=== PATIENT | female | born 1985 | race Caucasian/White ===

== ENCOUNTER 2017-03-31 20:47 | Emergency (ER) | payer MEDICAID, OTHER ==
[2017-03-31] MEDS ORDERED: Lidocaine/EPINEPHrine/Tetracaine Soln 1 ML TOP ONE ×2 (21:57→22:02)
[2017-03-31 22:39] LABS: ACETAMINOPHEN 0 ug/mL (10-30)
--- NOTE | 2017-03-31 22:50 | EDM.PDOCBH ---
ED HPI GENERAL MEDICAL PROBLEM - General Chief Complaint: Behavioral/Psych Stated Complaint: [facility] Time Seen by Provider: 03/31/17 21:04 Source of Information: Reports: Patient, RN Notes Reviewed History Limitations: Reports: Other (Patient crying, yelling, swearing) - History of Present Illness INITIAL COMMENTS - FREE TEXT/NARRATIVE: The patient states that she and her fieric moved to [place] about 2 or 3 weeks ago. She states that she has a history of borderline personality disorder and social anxiety, and has been treated with both Celexa and Abilify. About 10 days ago she self-decreased both of these medications by half, then 4 days ago stopped them altogether. She states that she was seen by Juanita Duran NP at the [facility] yesterday, 03/30/2017 due to worsening anxiety and mood swings. She was prescribed Klonopin 1 mg, with instructions to take half a tablet in the morning, another half a tablet at midday, then 1 full tablet at bedtime. She was to follow-up in 2 weeks. She states that she took less than the prescribed dose, but then had a difficult time waking up this morning, feeling groggy. She notes that she had previously been on Klonopin 2 mg total per day, but that was several years ago. She states that when her fianc came home at 13:00 this afternoon, he told her that he did not want to be around her, therefore she grabbed a kitchen knife and slashed her left wrist 4 times. When asked why she did this, she stated that she hoped she would . Her fianc called EMS. The patient acknowledges one prior suicide attempt in 2007, by slitting her wrists with a razor blade in a bathtub. She was found by her sister. She states that she was taken to an ER, but sent home that same night. She was not psychiatrically hospitalized for that attempt. She states that she has been psychiatrically hospitalized only once, at around 12 years old, due to anger issues. The patient states that she was in drug rehabilitation for methamphetamine abuse in March 2016 for 30 days, followed by [facility] for 60 days. She states that she has not used methamphetamine since. The patient states that she ordinarily drinks a couple of alcoholic beverages, 3 times week, but today has had 6 shots. Left Wrist Pain Score (Numeric/FACES): 6 - Related Data Allergies Allergy/AdvReac Type Severity Reaction Status Date / Time Penicillins Allergy Vomiting Verified 03/31/17 21:02 Past Medical History [address] [employer] History: Reports: Musculoskeletal History: Reports: RA (per patient history) Psychiatric History: Reports: Addiction, Anxiety, Depression, Mood Swings, OCD, Suicide Attempt, Other (See Below) (Borderline personality disorder) Endocrine/Metabolic History: Reports: Hyperthyroidism - Infectious Disease History Infectious Disease History: Reports: Hepatitis C - Past Surgical History HEENT Surgical History: Reports: Oral Surgery (2 wisdom teeth extracted) Social & Family History - Tobacco Use Smoking Status *Q: Current Every Day Smoker Years of Tobacco use: 18 Packs/Tins Daily: 2 - Caffeine Use Caffeine Use: Reports: Coffee - Alcohol Use Alcohol Use History: Yes Days Per Week of Alcohol Use: 3 Number of Drinks Per Day: 2 Total Drinks Per Week: 6 Alcohol Use Frequency: Socially - Recreational Drug Use Recreational Drug Use: Yes Drug Use in Last 12 Months: No Recreational Drug Type: Reports: Methamphetamine - Living Situation & Occupation Living situation: Reports: Single, with Significant Other (Fiance) Occupation: Unemployed ED ROS GENERAL - Review of Systems Review Of Systems: See Below Constitutional: Reports: No Symptoms HEENT: Reports: No Symptoms Respiratory: Reports: No Symptoms Cardiovascular: Reports: No Symptoms Endocrine: Reports: No Symptoms GI/Abdominal: Reports: No Symptoms : Reports: No Symptoms Musculoskeletal: Reports: No Symptoms Skin: Reports: No Symptoms Neurological: Reports: No Symptoms Psychiatric: Reports: No Symptoms Hematologic/Lymphatic: Reports: No Symptoms Immunologic: Reports: No Symptoms ED EXAM, BEHAVIORAL HEALTH - Physical Exam Exam: See Below Exam Limited By: No Limitations General Appearance: Alert, WD/WN, Other (Emotionally upset) Eye Exam: Bilateral Eye: Normal Inspection Ears: Normal External Exam, Hearing Grossly Normal Nose: Normal Inspection, No Blood Throat/Mouth: Normal Inspection, Normal Lips, Normal Voice, No Airway Compromise Head: Atraumatic, Normocephalic Neck: Normal Inspection, Full Range of Motion Respiratory/Chest: No Respiratory Distress, Lungs Clear, Normal Breath Sounds, No Accessory Muscle Use Cardiovascular: Normal Peripheral Pulses, Regular Rate, Rhythm, No Gallop, No JVD, No Murmur, No Rub GI/Abdominal: Normal Bowel Sounds, Soft, Non-Tender, No Organomegaly, No Distention, No Abnormal Bruit, No Mass (Female) Exam: Deferred Rectal (Female) Exam: Deferred Back Exam: Normal Inspection, Full Range of Motion, NT Extremities: Normal Range of Motion, No Pedal Edema, Normal Capillary Refill, Other (There are 4 tangential scratches to the distal left forearm, 4 aspect. Within the and the 2 proximal most scratches, there are lacerations. The most distal scratch measures proximally 4 cm, with a 1 cm laceration. The next most proximal scratches approximately 3.5 cm, without a laceration. The next most proximal lesion measures approximately 5 cm, with a 1.5 cm laceration, and the most proximal lesion measures approximately 5.5 cm, with a 2 cm laceration.) Neurological: Alert, No Motor/Sensory Deficits Psychiatric: Tearful, Agitated, Suicidal Thoughts, Other (Hostile) Skin Exam: Warm, Dry, Normal color, No rash ED LACERATION PROCEDURES - Laceration/Wound Repair Left Arm Lac/wound length in cm: 4.5 Appearance: Subcutaneous, Linear, Clean Distal NVT: Neuro & Vascular Intact, No Tendon Injury Anesthetic Type: Topical (LET) Local Anesthesia - Lidocaine (Xylocaine): 1% with EPI Local Anesthesia - Bupivicaine (Marcaine): 0.5% Plain Local Anesthetic Volume: 2cc Skin Prep: Providone-Iodine (Betadine) Exploration/Debridement/Repair: Wound Explored, In a Bloodless Field, Explored to Base, Wound Margins Revised Closed with: Sutures, Dermabond Suture Size: 3-0 # of Sutures: 7 Suture Type: Nylon, Interrupted, Running, Simple Sterile Dressing Applied: Nurse Tetanus Status Addressed: Yes Complications: No EKG INTERPRETATION EKG Date: 03/31/17 Time: 21:51 Rhythm: Other (Sinus tachycardia) Rate (Beats/Min): 112 [place]: Normal P-Wave: Present QRS: Normal ST-T: Normal QT: Normal Comparison: NA - No Prior EKG COURSE, BEHAVIORAL HEALTH COMP - Course Vital Signs: Last Vital Signs Temp 36.3 C 03/31/17 20:53 Pulse 114 H 03/31/17 20:53 Resp 20 03/31/17 20:53 BP 127/88 03/31/17 20:53 Pulse Ox 93 L 03/31/17 20:53 Orders, Labs, Meds: Active Orders 24 hr Category Date Time Status EKG Documentation Completion [RC] STAT Care 03/31/17 21:43 Active Vaccines to be Administered [RC] PER UNIT ROUTINE Care 04/01/17 01:05 Active Laboratory Tests 03/31/17 03/31/17 03/31/17 Range/Units 21:05 21:05 21:57 WBC 6.98 (3.98-10.04) K/mm3 RBC 4.08 (3.98-5.22) M/mm3 Hgb 12.7 (11.2-15.7) gm/L Hct 36.1 (34.1-44.9) % MCV 88.5 (79.4-94.8) fl MCH 31.1 (25.6-32.2) pg MCHC 35.2 (32.2-35.5) g/dl RDW Std Deviation 39.5 (36.4-46.3) fL Plt Count 237 (182-369) K/mm3 MPV 9.6 (9.4-12.3) fl Neutrophils % (Manual) 43 (40-60) % Band Neutrophils % 0 (0-10) % Lymphocytes % (Manual) 54 H (20-40) % Atypical Lymphs % 0 % Monocytes % (Manual) 3 (2-10) % Eosinophils % (Manual) 0 L (0.7-5.8) % Basophils % (Manual) 0 L (0.1-1.2) Platelet Estimate Adequate RBC Morph Comment Normal Sodium (136-145) mEq/L Potassium (3.5-5.1) mEq/L Chloride (98-107) mEq/L Carbon Dioxide (21-32) mEq/L Anion Gap (5-15) BUN (7-18) mg/dL Creatinine (0.55-1.02) mg/dL Est Cr Clr Drug Dosing mL/min Estimated GFR (MDRD) (>60) mL/min BUN/Creatinine Ratio (14-18) Glucose (74-106) mg/dL Calcium (8.5-10.1) mg/dL Total Bilirubin (0.2-1.0) mg/dL AST (15-37) U/L ALT (14-59) U/L Alkaline Phosphatase (46-116) U/L Total Protein (6.4-8.2) g/dl Albumin (3.4-5.0) g/dl Globulin gm/dL Albumin/Globulin Ratio (1-2) TSH 3rd Generation (0.358-3.74) uIU/mL Urine HCG, Qual Negative (NEGATIVE) Salicylates (2.8-20) mg/dL Urine Opiates Screen Negative (NEGATIVE) Ur Buprenorphine Scrn Negative (NEGATIVE) Ur Oxycodone Screen Negative (NEGATIVE) Urine Methadone Screen Negative (NEGATIVE) Ur Propoxyphene Screen Negative (NEGATIVE) Acetaminophen (10-30) ug/mL Ur Barbiturates Screen Negative (NEGATIVE) Ur Tricyclics Screen Negative (NEGATIVE) Ur Phencyclidine Scrn Negative (NEGATIVE) Ur Amphetamine Screen Negative (NEGATIVE) U Methamphetamines Scrn Negative (NEGATIVE) U Benzodiazepines Scrn Negative (NEGATIVE) U Cocaine Metab Screen Negative (NEGATIVE) U Marijuana (THC) Screen Negative (NEGATIVE) Ethyl Alcohol (0.00) gm% 03/31/17 03/31/17 Range/Units 21:57 21:57 WBC (3.98-10.04) K/mm3 RBC (3.98-5.22) M/mm3 Hgb (11.2-15.7) gm/L Hct (34.1-44.9) % MCV (79.4-94.8) fl MCH (25.6-32.2) pg MCHC (32.2-35.5) g/dl RDW Std Deviation (36.4-46.3) fL Plt Count (182-369) K/mm3 MPV (9.4-12.3) fl Neutrophils % (Manual) (40-60) % Band Neutrophils % (0-10) % Lymphocytes % (Manual) (20-40) % Atypical Lymphs % % Monocytes % (Manual) (2-10) % Eosinophils % (Manual) (0.7-5.8) % Basophils % (Manual) (0.1-1.2) Platelet Estimate RBC Morph Comment Sodium 143 (136-145) mEq/L Potassium 3.9 (3.5-5.1) mEq/L Chloride 108 H (98-107) mEq/L Carbon Dioxide 23 (21-32) mEq/L Anion Gap 15.9 H (5-15) BUN 9 (7-18) mg/dL Creatinine 0.7 (0.55-1.02) mg/dL Est Cr Clr Drug Dosing 101.48 mL/min Estimated GFR (MDRD) > 60 (>60) mL/min BUN/Creatinine Ratio 12.9 L (14-18) Glucose 92 (74-106) mg/dL Calcium 8.8 (8.5-10.1) mg/dL Total Bilirubin 0.4 (0.2-1.0) mg/dL AST 40 H (15-37) U/L ALT 84 H (14-59) U/L Alkaline Phosphatase 51 (46-116) U/L Total Protein 6.9 (6.4-8.2) g/dl Albumin 3.8 (3.4-5.0) g/dl Globulin 3.1 gm/dL Albumin/Globulin Ratio 1.2 (1-2) TSH 3rd Generation 0.867 (0.358-3.74) uIU/mL Urine HCG, Qual (NEGATIVE) Salicylates 3.3 (2.8-20) mg/dL Urine Opiates Screen (NEGATIVE) Ur Buprenorphine Scrn (NEGATIVE) Ur Oxycodone Screen (NEGATIVE) Urine Methadone Screen (NEGATIVE) Ur Propoxyphene Screen (NEGATIVE) Acetaminophen 0 L (10-30) ug/mL Ur Barbiturates Screen (NEGATIVE) Ur Tricyclics Screen (NEGATIVE) Ur Phencyclidine Scrn (NEGATIVE) Ur Amphetamine Screen (NEGATIVE) U Methamphetamines Scrn (NEGATIVE) U Benzodiazepines Scrn (NEGATIVE) U Cocaine Metab Screen (NEGATIVE) U Marijuana (THC) Screen (NEGATIVE) Ethyl Alcohol 0.07 (0.00) gm% Medications Discontinued Medications Generic Name Dose Route Start Last Admin Trade Name Freq PRN Reason Stop Dose Admin Bupivacaine HCl 10 ml 03/31/17 23:44 04/01/17 01:10 Sensorcaine-Mpf 0.5% INJECT 03/31/17 23:45 10 ml ONETIME ONE Administration Diphtheria/Tetanus/Acell Pertussis 0.5 ml 04/01/17 01:04 04/01/17 08:15 Adacel IM 04/01/17 01:05 0.5 ml .ONCE ONE Administration Lidocaine/Epinephrine 20 ml 03/31/17 23:43 04/01/17 01:10 Xylocaine 1% With Epinephrine 1:100,000 INJECT 03/31/17 23:44 20 ml ONETIME ONE Administration Lidocaine/Tetracaine 1 ml 03/31/17 21:57 03/31/17 22:05 Let Soln TOP 03/31/17 21:58 1 ml ONETIME ONE Administration Lidocaine/Tetracaine 1 ml 03/31/17 22:02 03/31/17 22:09 Let Soln TOP 03/31/17 22:03 1 ml ONETIME ONE Administration Lidocaine/Tetracaine 2 ml 04/01/17 00:01 04/01/17 00:05 Let Soln TOP 04/01/17 00:02 2 ml ONETIME STA Administration Medical Clearance: 04/01/17 01:05 Following LET anesthesia plus additional 50:50 admixture of 1% lidocaine with epinephrine and bupivacaine 0.5% without epinephrine, the 2 most proximal lacerations were sutured with 3-0 Ethilon. The most proximal laceration, measuring 2 cm, received 5 running sutures, while the second most proximal laceration, measuring 1.5 cm, received 2 simple interrupted sutures. The most distal laceration, measuring 1 cm, was closed with Dermabond. The patient tolerated the procedure well. As the patient does not recall when her last tetanus vaccination was, a tetanus vaccination has been ordered, however, the patient requested that she receive it in the morning. 04/01/17 01:[address] Cox, Psychiatrist at [facility], at 01:28. He accepts the patient for involuntary psychiatric admission. He states that he does not need screening by [facility]. He is aware that the patient may not arrive to their facility until as late as 11:30 CDT in the morning. 04/01/17 07:00 The patient has been sleeping quietly overnight. We are expecting [facility] to arrive here for transport between 08:00 and 09:00 this morning. Departure - Departure Time of Disposition: 09:30 Disposition: DC/Tfer to Psych Hosp/Unit 65 Condition: Fair Clinical Impression: Suicide attempt, Laceration of left forearm without complication - Discharge Information - My Orders Last 24 Hours: My Active Orders 03/31/17 21:43 EKG Documentation Completion [RC] STAT 04/01/17 01:05 Vaccines to be Administered [RC] PER UNIT ROUTINE - Assessment/Plan Last 24 Hours: My Active Orders 03/31/17 21:43 EKG Documentation Completion [RC] STAT 10/20/17 01:05 Vaccines to be Administered [RC] PER UNIT ROUTINE
[2017-03-31] MEDS ORDERED: Lidocaine 1% with EPINEPHrine 1:100,000 20 ML MDV INJECT ONE (23:43)
[2017-03-31] MEDS ORDERED: Bupivacaine 0.5% 10 ML SDV INJECT ONE (23:44)
[2017-04-01] MEDS ORDERED: Lidocaine/EPINEPHrine/Tetracaine Soln 1 ML TOP STA (00:01)
[2017-04-01] MEDS ORDERED: Diphtheria,Pertussis(Acell),Tetanus Vaccine 0.5 ML SDV IM ONE (01:04)
== END 2017-04-01 09:28 ==
LOC: JD.ED 20:47
DX: S51.812A Laceration without foreign body of left forearm, initial encounter (principal); Z88.0 Allergy status to penicillin; Z23 Encounter for immunization; F17.210 Nicotine dependence, cigarettes, uncomplicated; X78.1XXA Intentional self-harm by knife, initial encounter
CPT/HCPCS: 12002; 36415; 80053; 80306; 81025; 84443; 85025; 90471; 90715; 93005; 99285; A9270; G0480; 93010; 99284

== ENCOUNTER 2018-11-22 21:35 | Emergency (ER) | payer MEDICAID | END 2018-11-22 22:58 | disposition home or self-care (01) | LOC: JD.ED 21:35 | DX: Z53.21 Procedure and treatment not carried out due to patient leaving prior to being seen by health care provider (principal) ==

== ENCOUNTER 2018-12-02 16:38 | Emergency (ER) | payer MEDICAID ==
--- NOTE | 2018-12-02 17:02 | EDM.PDOCBH ---
ED HPI GENERAL MEDICAL PROBLEM - General Chief Complaint: Behavioral/Psych Stated Complaint: PSYCH EVAL Time Seen by Provider: 12/02/18 16:58 Source of Information: Reports: Patient, RN Notes Reviewed History Limitations: Reports: No Limitations - History of Present Illness INITIAL COMMENTS - FREE TEXT/NARRATIVE: Patient is a 33-year-old female who presents to the ED for a mental health evaluation. The patient notes that she has a history of bipolar, and that she takes Celexa, Abilify, and lamotrigine for mood stabilization, she has been trying to wean herself off of her when necessary clonidine. The patient notes that her moods today and recently feel very unstable and or teetering between anger and anxiety. She notes a history of being quite violent when she is angry. However she is not having any thoughts of harming herself or others today. She also has denied hearing or seeing anything that is not there. She states that she starting anger management group and a borderline personality croup in December. She told the triage nurse that she is currently homeless, and was trying to get herself into a snf house named [facility], but due to the fact she was on Celexa, they denied her entry. The patient is currently being seen on an outpatient basis at [facility] with Dr. Ordoñez. The patient states that she has a therapy appointment on Tuesday. The patient notes that she uses a vapo 10, and has recently started smoking, denies alcohol use, and states that she did use meth with the last time being 3 weeks ago. - Related Data Allergies Allergy/AdvReac Type Severity Reaction Status Date / Time Penicillins Allergy Vomiting Verified 01/20/18 10:22 Home Meds: Home Meds ARIPiprazole [Abilify] 2 mg PO DAILY 01/20/18 [History] Citalopram Hydrobromide [Celexa] 40 mg PO DAILY 01/20/18 [History] Pantoprazole Sodium [Protonix] 40 mg PO DAILY 12/02/18 [History] clonazePAM [Clonazepam] 1 mg PO BID PRN #14 tab.rapdis 12/02/18 [Rx] lamoTRIgine [Lamotrigine] 100 mg PO BID 12/02/18 [History] Past Medical History Respiratory History: Reports: Other (See Below) Other Respiratory History: states has seasonal asthma. Gastrointestinal History: Reports: Irritable Bowel Syndrome Other Gastrointestinal History: self-Dx'd. 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 - Infectious Disease History Infectious Disease History: Reports: Chicken Pox, Hepatitis C - Past Surgical History HEENT Surgical History: Reports: Oral Surgery (2 wisdom teeth extracted) Female Surgical History: Reports: Other (See Below) (cervical bx) Social & Family History - Caffeine Use Caffeine Use: Reports: Coffee, Soda - Living Situation & Occupation Living situation: Reports: Single, Other (Roommate) Occupation: Unemployed ED ROS GENERAL - Review of Systems Review Of Systems: See Below Constitutional: Reports: No Symptoms HEENT: Reports: No Symptoms Respiratory: Reports: No Symptoms Cardiovascular: Reports: No Symptoms Endocrine: Reports: No Symptoms GI/Abdominal: Reports: No Symptoms : Reports: No Symptoms Musculoskeletal: Reports: No Symptoms Skin: Reports: No Symptoms Neurological: Reports: No Symptoms Psychiatric: Reports: Agitation, Anxiety, Mood Lability (as stated per patient, she is appropriate during her ER visit). Denies: Hallucinations, Homicidal Ideation, Suicidal Ideation Hematologic/Lymphatic: Reports: No Symptoms Immunologic: Reports: No Symptoms ED EXAM, BEHAVIORAL HEALTH - Physical Exam Exam: See Below Exam Limited By: No Limitations General Appearance: Alert, WD/WN, No Apparent Distress, Anxious Respiratory/Chest: No Respiratory Distress, Lungs Clear, Normal Breath Sounds, No Accessory Muscle Use, Chest Non-Tender Cardiovascular: Normal Peripheral Pulses, Regular Rate, Rhythm, No Murmur Extremities: Normal Inspection, Normal Capillary Refill Neurological: Alert, Normal Mood/Affect, Normal Reflexes, Oriented x 3 Psychiatric: Alert, Normal Affect, Normal Mood, Oriented, Restless, Pressured Speech (pt does talk quite fast but ideas are fluent, and she seems to want to fill silence.). No: Poor Eye Contact, Uncooperative, Withdrawn, Homicidal Thoughts, Suicidal Plan, Suicidal Thoughts, Auditory Hallucinations, Visual Hallucinations, Grandiose Thoughts, Paranoid Thoughts, Threatening Behavior Skin Exam: Warm, Dry, Intact, Normal color, No rash COURSE, BEHAVIORAL HEALTH COMP - Course Vital Signs: Last Vital Signs Temp 97.4 F 12/02/18 16:46 Pulse 88 12/02/18 16:46 Resp 20 12/02/18 16:46 BP 103/71 12/02/18 16:46 Pulse Ox 97 12/02/18 16:46 Orders, Labs, Meds: Medications Discontinued Medications Generic Name Dose Route Start Last Admin Trade Name Freq PRN Reason Stop Dose Admin Clonazepam 1 mg 12/02/18 17:20 12/02/18 17:41 Klonopin PO 12/02/18 17:21 1 mg ONETIME ONE Administration Discharge vs Psych Eval/Treatment:: 12/02/18 17:35 Patient presents to the ED for a mental health evaluation. It appears that the patient is not thriving well without taking her Klonopin. I did order a 1 mg dose to be given in the ED today. I was in contact with [facility] services in attempts to try to figure out a discharge plan for this patient, I spoke with Gabo, who is communications marketing intern, and she states that they do not have any female beds open at the [facility] at this time. She recommended that we have the patient get a hold of the distribution warehouse manager at [facility] to see if they can provide us with a medication list so that we can verify if Celexa is on that list. However I do not believe that the patient is lying to us about them telling her she cannot be there while taking Celexa. The patient does need to take her medications to help with mood stabilization. It is also fairly obvious that the patient needs to continue to take her Klonopin as needed. 12/02/18 19:12 Pt's GAMBLING BOX PERSON was checked and demonstrates that she got a refill of her clonazepam on 11/25 for 60 tablets, when confronted with this information. The patient states that she flushed all of these medications that she did not want to take them any longer. The patient believes she has a friend she can stay with raheel. I will provide her with 1 week's worth of clonazepam at this time. Departure - Departure Time of Disposition: 19:36 Disposition: Home, Self-Care 01 Condition: Fair Clinical Impression: Anxiety - Discharge Information *PRESCRIPTION DRUG MONITORING PROGRAM REVIEWED*: Yes *COPY OF PRESCRIPTION DRUG MONITORING REPORT IN PATIENT TRUNG: No Prescriptions: clonazePAM [Clonazepam] 1 mg PO BID PRN #14 tab.rapdis PRN Reason: Anxiety Instructions: Living With Anxiety Referrals: Aisha Sanchez PA-C [Primary Care Provider] - Forms: ED Department Discharge Additional Instructions: [facility] your [facility] anxiety. You were given 1 mg of clonazepam, and this seemed to help your symptoms of anxiety. You have been provided with 1 week's worth of clonazepam, please follow up with your provider at [facility] for continuation of this medication. This medication was electronically prescribed to the [place] [facility] located in the [employer] [facility]. Please return to the ER if your symptoms should change or worsen.
[2018-12-02] MEDS ORDERED: ClonazePAM 1 MG Tab PO ONE (17:20)
== END 2018-12-02 20:21 | disposition home or self-care (01) ==
LOC: JD.ED 16:38
DX: F41.9 Anxiety disorder, unspecified (principal); M06.9 Rheumatoid arthritis, unspecified; F31.9 Bipolar disorder, unspecified; Z79.899 Other long term (current) drug therapy; Z98.890 Other specified postprocedural states; Z88.0 Allergy status to penicillin
CPT/HCPCS: 99283; A9270

== ENCOUNTER 2019-04-01 16:20 | Emergency (ER) | payer SELFPAY ==
[2019-04-01] MEDS ORDERED: Lidocaine 1% 10 ML MDV INJECT ONE (16:37)
[2019-04-01] MEDS ORDERED: Lidocaine 1% 50 ML MDV ONE (16:38)
[2019-04-01] MEDS ORDERED: ClonazePAM 0.5 MG Tab PO ONE (16:42)
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
--- NOTE | 2019-04-01 18:13 | CR ---
Left foot: 2 views of the left foot were obtained. Comparison: No prior foot exam. Artifact is seen from portable technique. Slight bunion deformity is noted. Soft tissue swelling is noted laterally. No radiopaque foreign object is appreciated. No discrete bony abnormality is identified. Impression: 1. Slightly limited study. 2. Other findings as noted above. 3. No acute bony abnormality or radiopaque foreign object is seen. Diagnostic code #2
== END 2019-04-01 17:30 | disposition home or self-care (01) ==
LOC: JD.ED 16:20
DX: S91.312A Laceration without foreign body, left foot, initial encounter (principal); S90.415A Abrasion, left lesser toe(s), initial encounter; S60.417A Abrasion of left little finger, initial encounter; S60.512A Abrasion of left hand, initial encounter; S60.511A Abrasion of right hand, initial encounter; F32.9 Major depressive disorder, single episode, unspecified; Z79.899 Other long term (current) drug therapy; Z88.0 Allergy status to penicillin; V48.6XXA Car passenger injured in noncollision transport accident in traffic accident, initial encounter; Y93.39 Activity, other involving climbing, rappelling and jumping off; Y92.410 Unspecified street and highway as the place of occurrence of the external cause
CPT/HCPCS: 12001; 73620; 99282; A9270; J2001; 99283

== ENCOUNTER 2019-09-01 14:00 | Emergency (ER) | payer OTHER ==
--- NOTE | 2019-09-01 15:06 | EDM.PDOC ---
ED HPI GENERAL MEDICAL PROBLEM - General Chief Complaint: Drug or Alcohol Abuse Stated Complaint: RELAPSED NEEDS HELP TO GET TO CRISIS BED Time Seen by Provider: 09/01/19 14:22 Source of Information: Reports: Patient, RN Notes Reviewed History Limitations: Reports: No Limitations - History of Present Illness INITIAL COMMENTS - FREE TEXT/NARRATIVE: Patient is a 34-year-old female who presents to the ED for the evaluation for help to try to get to the crisis bed at [facility]. Patient states she has been at [employer], and was out yesterday and had some alcohol and 2 small shots of meth. She notes that she blew a 0.157 at the last check last night at 6 PM. She was not admitted back into [email or web address] at this time due to being intoxicated. The patient states that she took injections of methamphetamine last night. She states she has not used this in quite some time. The [facility], and was told to show up there Tuesday for intake and to talk with her counselor, but the patient states she could not wait until then so comes here for possible placement into the crisis bed sooner. Patient states that she is got some cold-like symptoms, nothing that is bothersome, she has not had any fevers, shortness of breath, or otherwise. Patient's complaining that she just has nowhere else to go at this time. She is not complaining of any other symptoms whatsoever. - Related Data Allergies Allergy/AdvReac Type Severity Reaction Status Date / Time Penicillins Allergy Vomiting Verified 09/01/19 14:26 Home Meds: Home Meds ARIPiprazole [Abilify] 2 mg PO DAILY 01/20/18 [History] Citalopram Hydrobromide [Celexa] 40 mg PO DAILY 01/20/18 [History] Pantoprazole Sodium [Protonix] 40 mg PO DAILY 12/02/18 [History] clonazePAM [Clonazepam] 1 mg PO BID PRN #14 tab.rapdis 12/02/18 [Rx] lamoTRIgine [Lamotrigine] 100 mg PO BID 12/02/18 [History] Past Medical History Respiratory History: Reports: Other (See Below) Other Respiratory History: states has seasonal asthma. Gastrointestinal History: Reports: Irritable Bowel Syndrome Other Gastrointestinal History: self-Dx'd. 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 - Infectious Disease History Infectious Disease History: Reports: Chicken Pox, Hepatitis C - Past Surgical History HEENT Surgical History: Reports: Oral Surgery Female Surgical History: Reports: Other (See Below) Social & Family History - Family History Family Medical History: Noncontributory - Tobacco Use Smoking Status *Q: Never Smoker - Caffeine Use Caffeine Use: Reports: Coffee, Soda - Recreational Drug Use Recreational Drug Use: Yes Recreational Drug Type: Reports: Methamphetamine - Living Situation & Occupation Living situation: Reports: Single, Other (Roommate) Occupation: Unemployed ED ROS GENERAL - Review of Systems Review Of Systems: Comprehensive ROS is negative, except as noted in HPI. ED EXAM, GENERAL - Physical Exam Exam: See Below Exam Limited By: No Limitations General Appearance: Alert, WD/WN, No Apparent Distress Eye Exam: Bilateral Eye: EOMI, Normal Inspection, PERRL Ears: Normal External Exam Nose: Normal Inspection Throat/Mouth: Normal Inspection, Normal Lips, Normal Teeth, Normal Gums, Normal Oropharynx, Normal Voice, No Airway Compromise Head: Atraumatic, Normocephalic Neck: Normal Inspection Respiratory/Chest: No Respiratory Distress, Lungs Clear, Normal Breath Sounds, No Accessory Muscle Use, Chest Non-Tender Cardiovascular: Normal Peripheral Pulses, Regular Rate, Rhythm, No Murmur Peripheral Pulses: 3+: Radial (L), Radial (R) GI/Abdominal: Normal Bowel Sounds, Soft, Non-Tender, No Distention, No Mass Extremities: Normal Inspection, Normal Capillary Refill Neurological: Alert, Oriented, Normal Cognition, No Motor/Sensory Deficits Psychiatric: Normal Mood, Anxious (pt states that she hasn't had much for sleep last night) Skin Exam: Warm, Dry, Intact, Normal Color, No Rash Course - Vital Signs Last Recorded V/S: Last Vital Signs Temp 97.8 F 09/01/19 14:23 Pulse 125 H 09/01/19 14:23 Resp 16 09/01/19 14:23 BP 149/91 H 09/01/19 14:23 Pulse Ox 97 09/01/19 14:23 - Re-Assessments/Exams Free Text/Narrative Re-Assessment/Exam: 09/01/19 15:05 Patient presents to the ED for the possibility of being admitted into the crisis bed at [facility]. I was in contact with the on-call center recruiter there, and they state that they would not take her for placement at this time, as she is well- known to them, and they did tell her that she can come there Tuesday for evaluation and further management. I did have them call her again while being in the ER to explain this to her and tell her that were not a workaround to get into the [facility] if she is not having an actual crisis. There are no other emergency symptoms or complaints that I can further evaluate today. Patient states that she last drank alcohol last night, took the meth last night, and she is walking appropriately, talking appropriately and is not deemed a harm to herself at this time. Patient will likely be discharged home with general recommendations and have her follow-up with [facility] on Tuesday as previously told. Departure - Departure Time of Disposition: 15:06 Disposition: Home, Self-Care 01 Condition: Fair Clinical Impression: Methamphetamine abuse, Alcohol abuse - Discharge Information *PRESCRIPTION DRUG MONITORING PROGRAM REVIEWED*: No *COPY OF PRESCRIPTION DRUG MONITORING REPORT IN PATIENT TRUNG: No Instructions: Stimulant Use Disorder-Methamphetamines, Alcohol Use Disorder Referrals: Aisha Sanchez PA-C [Primary Care Provider] - Additional Instructions: You were evaluated in the ER today regarding the possible placement into the [facility] at this time. They were called, on your behalf, and they state that they would not accept you into the crisis bed at this time. Your evaluation in the ER elicited no emergency syndromes that need further treatment or evaluation at this time. You are not deemed a harm to yourself, you are able to walk and talk appropriately. You will be discharged from this ER, please try to refrain from alcohol use and methamphetamine use, until Tuesday morning when you can go talk to the staff that [facility] for further evaluation and management. Sepsis Event Note - Evaluation Sepsis Screening Result: No Definite Risk - Focused Exam Vital Signs: Vital Signs Temp Pulse Resp BP Pulse Ox 09/01/19 14:23 97.8 F 125 H 16 149/91 H 97 Date Exam was Performed: 09/01/19 Time Exam was Performed: 15:01
== END 2019-09-01 15:26 | disposition home or self-care (01) ==
LOC: JD.ED 14:00
DX: F15.10 Other stimulant abuse, uncomplicated (principal); F10.10 Alcohol abuse, uncomplicated; Z88.0 Allergy status to penicillin; Z79.899 Other long term (current) drug therapy
CPT/HCPCS: 99282; 99283

== ENCOUNTER 2020-02-23 17:22 | Emergency (ER) | payer OTHER ==
--- NOTE | 2020-02-23 17:41 | EDM.PDOCBH ---
ED HPI GENERAL MEDICAL PROBLEM - General Chief Complaint: Behavioral/Psych Stated Complaint: ANXIETY Time Seen by Provider: 02/23/20 17:31 Source of Information: Reports: Patient, RN Notes Reviewed - History of Present Illness INITIAL COMMENTS - FREE TEXT/NARRATIVE: 34 yr old comes in with panic attacks. She had been on Klonopin for a long time. Her Klonopin was stopped when she was admitted into treatment about 2 1/2 months ago. She states that is not working, having severe anxiety. Has been taking visceral, states that is not working. States the weekend is more difficult when she is not getting therapy. - Related Data Allergies Allergy/AdvReac Type Severity Reaction Status Date / Time Penicillins Allergy Vomiting Verified 02/23/20 17:31 Home Meds: Home Meds Pantoprazole Sodium [Protonix] 40 mg PO DAILY 12/02/18 [History] lamoTRIgine [Lamotrigine] 100 mg PO BID 12/02/18 [History] Mirtazapine [Remeron] 15 mg PO DAILY 02/23/20 [History] Varenicline Tartrate [Chantix] 1 tab PO DAILY 02/23/20 [History] clonazePAM [Clonazepam] 0.25 mg PO BID #4 tab.rapdis 02/23/20 [Rx] Past Medical History Respiratory History: Reports: Other (See Below) Other Respiratory History: states has seasonal asthma. Gastrointestinal History: Reports: Irritable Bowel Syndrome Other Gastrointestinal History: self-Dx'd. 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 - Infectious Disease History Infectious Disease History: Reports: Hepatitis C - Past Surgical History HEENT Surgical History: Reports: Oral Surgery Female Surgical History: Reports: Other (See Below) Social & Family History - Family History Family Medical History: Noncontributory - Tobacco Use Smoking Status *Q: Former Smoker Used Tobacco, but Quit: Yes Month/Year Tobacco Last Used: 2 weeks ago - Caffeine Use Caffeine Use: Reports: None - Recreational Drug Use Recreational Drug Use: Yes Drug Use in Last 12 Months: No Recreational Drug Type: Reports: Methamphetamine - Living Situation & Occupation Living situation: Reports: Single, Other (Roommate) Occupation: Unemployed ED ROS GENERAL - Review of Systems Review Of Systems: See Below Constitutional: Reports: No Symptoms HEENT: Reports: No Symptoms Respiratory: Denies: Shortness of Breath Cardiovascular: Denies: Chest Pain GI/Abdominal: Denies: Abdominal Pain, Vomiting Musculoskeletal: Reports: No Symptoms Skin: Reports: No Symptoms Neurological: Reports: No Symptoms Psychiatric: Reports: Anxiety ED EXAM, BEHAVIORAL HEALTH - Physical Exam Exam: See Below General Appearance: Alert, Anxious Head: Atraumatic Neck: Supple Respiratory/Chest: No Respiratory Distress Extremities: Normal Inspection, Normal Range of Motion Neurological: Alert, No Motor/Sensory Deficits Psychiatric: Alert, Tearful Skin Exam: Warm, Dry, Normal color COURSE, BEHAVIORAL HEALTH COMP - Course Vital Signs: Last Vital Signs Temp 98.5 F 02/23/20 17:29 Pulse 107 H 02/23/20 17:29 Resp 18 02/23/20 17:29 BP 121/83 02/23/20 17:29 Pulse Ox 96 02/23/20 17:29 Departure - Departure Time of Disposition: 17:56 Disposition: Home, Self-Care 01 Condition: Fair Clinical Impression: Anxiety, Panic attacks - Discharge Information Prescriptions: clonazePAM [Clonazepam] 0.25 mg PO BID #4 tab.rapdis Instructions: Panic Attack, Living With Anxiety Referrals: Aisha Sanchez PA-C [Primary Care Provider] - Forms: ED Department Discharge Additional Instructions: clonazepam 0.25 mg twice daily through the weekend. Pres[facility]. Call or see Dr Ordoñez Tuesday. Sepsis Event Note (ED) - Evaluation Sepsis Screening Result: No Definite Risk - Focused Exam Vital Signs: Vital Signs Temp Pulse Resp BP Pulse Ox 02/23/20 17:29 98.5 F 107 H 18 121/83 96
== END 2020-02-23 18:10 | disposition home or self-care (01) ==
LOC: JD.ED 17:22
DX: F41.0 Panic disorder [episodic paroxysmal anxiety] (principal); F31.9 Bipolar disorder, unspecified; Z88.0 Allergy status to penicillin; Z79.899 Other long term (current) drug therapy; Z87.891 Personal history of nicotine dependence
CPT/HCPCS: 99283

== ENCOUNTER 2020-04-07 14:39 | Emergency (ER) | payer MEDICAID ==
--- NOTE | 2020-04-07 15:14 | EDM.PDOC ---
ED HPI GENERAL MEDICAL PROBLEM - General Chief Complaint: ENT Problem Stated Complaint: DENTAL COMPLAINT/SOB Time Seen by Provider: 04/07/20 14:46 Source of Information: Reports: Patient, RN Notes Reviewed History Limitations: Reports: No Limitations - History of Present Illness INITIAL COMMENTS - FREE TEXT/NARRATIVE: Patient is a 34-year-old female who presents to the ED for the evaluation of a few different complaints. She states she has been having issues with a broken tooth on the right lower side of her jaw for the past 3 days, she states that this happened while she was brushing her teeth. She notes that she has been swallowing purulent material, and has a little bit of sore throat and fatigue due to this. She is also questioning whether or not she has a UTI, she states when she goes to the bathroom, which seems to be more frequent, she is only peeing a little bit at a time and notes a cloudiness to her urine. She is not had a fever or chills, her temperature is 97.2 F, her pulse rate is 127, respiratory rate of 28 breaths/min, O2 sats 96% on room air, blood pressure is 98/74. The patient herself cannot sit still, but is acting appropriate and answering questions appropriately. Patient states that she used to use methamphetamines, and her last use was in December of 2019. Throat Pain Score (Numeric/FACES): 10 - Related Data Allergies Allergy/AdvReac Type Severity Reaction Status Date / Time Penicillins Allergy Vomiting Verified 04/07/20 14:45 Home Meds: Home Meds Pantoprazole Sodium [Protonix] 40 mg PO DAILY 12/02/18 [History] lamoTRIgine [Lamotrigine] 100 mg PO BID 12/02/18 [History] Mirtazapine [Remeron] 15 mg PO DAILY 02/23/20 [History] Varenicline Tartrate [Chantix] 1 tab PO DAILY 02/23/20 [History] Cefdinir [Omnicef] 300 mg PO BID 10 Days #20 cap 04/07/20 [Rx] FLUoxetine [PROzac] 60 mg PO DAILY 04/07/20 [History] hydrALAZINE [Apresoline] 25 mg PO ASDIRECTED 04/07/20 [History] Past Medical History Respiratory History: Reports: Other (See Below) Other Respiratory History: states has seasonal asthma. Gastrointestinal History: Reports: Irritable Bowel Syndrome Other Gastrointestinal History: self-Dx'd. 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 - Infectious Disease History Infectious Disease History: Reports: Hepatitis C - Past Surgical History HEENT Surgical History: Reports: Oral Surgery Female Surgical History: Reports: Other (See Below) Social & Family History - Family History Family Medical History: Noncontributory - Caffeine Use Caffeine Use: Reports: None - Living Situation & Occupation Living situation: Reports: Single, Other (Roommate) Occupation: Unemployed ED ROS ENT - Review of Systems Review Of Systems: Comprehensive ROS is negative, except as noted in HPI. ED EXAM, ENT - Physical Exam Exam: See Below Exam Limited By: No Limitations General Appearance: Alert, WD/WN, No Apparent Distress, Anxious (pt seems very anxious and has a hard time sitting still while in the ER.) Mouth/Throat: Normal Inspection, Normal Gums, Normal Lips, Normal Oropharynx, Dental Pain (to right lower jaw. the patient's generalized dentition is in very poor repair.) Respiratory/Chest: No Respiratory Distress, Lungs Clear, Normal Breath Sounds, No Accessory Muscle Use, Chest Non-Tender Cardiovascular: Normal Peripheral Pulses, Regular Rate, Rhythm, No Murmur GI/Abdominal: Normal Bowel Sounds, Soft, Non-Tender, No Organomegaly, No Abnormal Bruit Extremities: Normal Inspection, Normal Capillary Refill Neurological: Alert, Oriented, Normal Cognition, No Motor/Sensory Deficits Psychiatric: Anxious Skin: Warm, Dry, Intact, Normal Color, No Rash Course - Vital Signs Last Recorded V/S: Last Vital Signs Temp 97.2 F 04/07/20 14:53 Pulse 127 H 04/07/20 14:53 Resp 28 H 04/07/20 14:53 BP 98/74 04/07/20 14:53 Pulse Ox 96 04/07/20 14:53 - Orders/Labs/Meds Labs: Laboratory Tests 04/07/20 Range/Units 15:25 Urine Color Yellow (Yellow) Urine Appearance Clear (Clear) Urine pH 6.0 (5.0-8.0) Ur Specific Brady > or = 1.030 (1.005-1.030) Urine Protein 1+ H (Negative) Urine Glucose (UA) Negative (Negative) Urine Ketones 3+ H (Negative) Urine Occult Blood Trace-intact H (Negative) Urine Nitrite Negative (Negative) Urine Bilirubin Negative (Negative) Urine Urobilinogen 0.2 (0.2-1.0) Ur Leukocyte Esterase Negative (Negative) Urine RBC 5-10 H (0-5) /hpf Urine WBC 0-5 (0-5) /hpf Ur Squamous Epith Cells 10-20 H (0-5) /hpf Urine Bacteria Rare (FEW) /hpf Urine Mucus Not seen (FEW) /hpf - Re-Assessments/Exams Free Text/Narrative Re-Assessment/Exam: 04/07/20 15:12 Patient presents to the ED for the evaluation of her multiple complaints. We will get a urinalysis to evaluate for UTI in nature. Patient will be placed on some antibiotics for her dental issue as well. Antibiotic choice is pending until we get the urinalysis. Although the patient states that she has not used meth since December 2019, her physical exam suggests otherwise, nonetheless; the patient is not having acute psychosis or other issues with this. 04/07/20 16:18 Patient's urinalysis is inconsistent with acute UTI at this time. She does have some blood cells in her urine, but again no obvious infection. Patient be discharged home with general recommendations and some antibiotics for her tooth issue. Departure - Departure Time of Disposition: 16:18 Disposition: Home, Self-Care 01 Condition: Good Clinical Impression: Pain, dental - Discharge Information *PRESCRIPTION DRUG MONITORING PROGRAM REVIEWED*: No *COPY OF PRESCRIPTION DRUG MONITORING REPORT IN PATIENT TRUNG: No Prescriptions: Cefdinir [Omnicef] 300 mg PO BID 10 Days #20 cap Instructions: Preventive Dental Care, Adult Referrals: Aisha Sanchez PA-C [Primary Care Provider] - Forms: ED Department Discharge Additional Instructions: You have been evaluated in the ED for your dental pain. You have been provided with a script for Omnicef. This was electronically sent to the [facility] located in the [employer] [facility]. Please take this medication as directed. (1 tab twice daily for 10 days or until gone). Your urinalysis was inconsistent with an acute UTI at this time. Aleve provides good pain relief for dental pain. Please take 1-2 tabs twice daily as needed for pain. You were given a prescription for Naprosyn, Please take 1 tab every 12 hours for pain relief. You may use hot pack/ ice packs to the affected area as tolerated in 15-20 minute intervals. You will ultimately need to find a dentist to provide definitive management of your dental pain. The [facility] in [place], [place], , is a clinic that has been known to take people that do not have dental insurance, and may provide payment plans. You might want to check with this provider, regarding your dental pain. Please return to the ED if your symptoms change or worsen. Sepsis Event Note (ED) - Evaluation Sepsis Screening Result: No Definite Risk - Focused Exam Vital Signs: Vital Signs Temp Pulse Resp BP Pulse Ox 04/07/20 14:53 97.2 F 127 H 28 H 98/74 96
== END 2020-04-07 16:40 | disposition home or self-care (01) ==
LOC: JD.ED 14:39
DX: K08.89 Other specified disorders of teeth and supporting structures (principal); F31.9 Bipolar disorder, unspecified; F41.9 Anxiety disorder, unspecified; Z79.899 Other long term (current) drug therapy; Z88.0 Allergy status to penicillin
CPT/HCPCS: 81001; 99283